=== PATIENT | male | born 1965 | race Two or more races ===

== ENCOUNTER 2024-07-12 06:40 | Day surgery (SDC) | payer OTHER ==
[2024-07-11 15:08] LABS: HEMOGLOBIN 15.5 g/dL (13-16.00); MEAN CELL VOLUME 87.9 fL (80.0-100.00); MEAN CORPUSCULAR HEMOGLOBIN 30.9 pg (27.00-32.0); MEAN CORPUSCULAR HGB CONC 35.1 g/dl (32.0-36.0); PLATELET COUNT 228 K/uL (150-450); RED BLOOD COUNT 5.01 M/uL (4.00-6.00); RED CELL DISTRIBUTION WIDTH 13.4 % (11.5-14.5)
[2024-07-11 15:34] LABS: INR 1.01; PARTIAL THROMBOPLASTIN TIME 24.2 SECONDS (22.0-34.0)
[2024-07-11 15:43] LABS: ALBUMIN 4.1 gm/dL (3.4-5.0); BILIRUBIN TOTAL 1.05 mg/dL (0.3-1.2); CALCIUM 8.9 mg/dL (8.5-10.1); CREATININE SERUM 0.76 mg/dL (0.70-1.30); GFR 105.34; GLOBULINA 2.8 G/DL (2.4-3.5); POTASSIUM 5.01 mEq/L (3.5-5.1); TOTAL PROTEIN 6.9 gm/dL (6.4-8.2)
== END 2024-07-12 20:25 | disposition home or self-care (01) ==
LOC: AMB-ENDOS 06:40
PROVIDERS: ATTEND Internal Medicine
DX: D37.5 Neoplasm of uncertain behavior of rectum (principal); K62.9 Disease of anus and rectum, unspecified; I10 Essential (primary) hypertension

== ENCOUNTER 2024-08-30 12:45 | Inpatient (IN) | payer OTHER ==
[~2024-08-30] VITALS: Ht 175.3 cm; Wt 88.0 kg
[2024-08-30] MEDS ORDERED: BENICAR5 MG PO (14:49)
[2024-09-07] MEDS ORDERED: METRONIDAZOLE/SODIUM CHLORIDE 500 MG/100 ML PIGGYBACK IV ONE (15:35)
[2024-09-07] MEDS ORDERED: CEFTRIAXONE SODIUM 2,000 MG VIAL ONE (15:35)
[2024-09-07] MEDS ORDERED: ONDANSETRON HCL 2 MG/ML VIAL IV PRN (19:15)
[2024-09-07] MEDS ORDERED: DEXTROSE 50 % IN WATER 0.5 G/ML DISP.SYRIN IV PRN (19:15)
[2024-09-07] MEDS ORDERED: RINGERS SOLUTION,LACTATED 1,000 ML IV SCH (19:15)
[2024-09-07] MEDS ORDERED: MORPHINE SULFATE 4 MG/ML CARTRIDGE IV PRN (19:15)
[2024-09-07] MEDS ORDERED: POVIDONE-IODINE 118 ML BOTT TOP ONE (19:35)
[2024-09-07] MEDS ORDERED: ACETAMINOPHEN 500 MG GEL..CAP PO SCH (20:00)
[2024-09-07] MEDS ORDERED: SUGAMMADEX SODIUM 200 MG/2 ML VIAL IV ONE (20:15)
[2024-09-07] MEDS ORDERED: LIDOCAINE HCL 1%/EPINEPHRINE 20ML VIAL IJ ONE (20:30)
[2024-09-07] MEDS ORDERED: BUPIVACAINE HCL 30 ML VIAL IJ ONE (20:30)
[2024-09-07] MEDS ORDERED: DIBUCAINE 15 GM OINT..GM. TUBE RECTAL ONE (20:30)
[2024-09-07] MEDS ORDERED: HEMOSTATIC MATRIX 1 KIT KIT TOP ONE (20:30)
[2024-09-07] MEDS ORDERED: FAMOTIDINE/PF 20 MG/2 ML VIAL IV PUSH SCH (21:00)
[2024-09-07] MEDS ORDERED: FAMOTIDINE/PF 20 MG/2 ML VIAL ONE (21:30)
[2024-09-07 21:53] LABS: HEMATOCRIT 42.8 % (39.0-48.0); HEMOGLOBIN 14.6 g/dL (13-16.00); MEAN CELL VOLUME 89.1 fL (80.0-100.00); MEAN CORPUSCULAR HEMOGLOBIN 30.5 pg (27.00-32.0); MEAN CORPUSCULAR HGB CONC 34.2 g/dl (32.0-36.0); PLATELET COUNT 188 K/uL (150-450); RED CELL DISTRIBUTION WIDTH 13.4 % (11.5-14.5)
[2024-09-07 22:08] VITALS: BP 118/77; O2SAT 97
[2024-09-07 22:08] LABS: ALBUMIN 3.5 gm/dL (3.4-5.0); CALCIUM 8.5 mg/dL (8.5-10.1); CREATININE SERUM 0.68 mg/dL (0.70-1.30); GFR 119.77; MAGNESIUM 1.9 mg/dL (1.8-2.4); PHOSPHOROUS 2.8 mg/dL (2.5-4.9); POTASSIUM 4.79 mEq/L (3.5-5.1)
[2024-09-08 01:26] VITALS: BP 125/75; O2SAT 100
[2024-09-08 07:33] LABS: HEMATOCRIT 41.6 % (39.0-48.0); HEMOGLOBIN 14.4 g/dL (13-16.00); MEAN CELL VOLUME 88.8 fL (80.0-100.00); MEAN CORPUSCULAR HEMOGLOBIN 30.8 pg (27.00-32.0); MEAN CORPUSCULAR HGB CONC 34.7 g/dl (32.0-36.0); PLATELET COUNT 199 K/uL (150-450); RED BLOOD COUNT 4.68 M/uL (4.00-6.00); RED CELL DISTRIBUTION WIDTH 13.2 % (11.5-14.5)
[2024-09-08 07:59] LABS: ALBUMIN 3.2 gm/dL (3.4-5.0); CALCIUM 8.2 mg/dL (8.5-10.1); CREATININE SERUM 0.62 mg/dL (0.70-1.30); GFR 133.24; MAGNESIUM 1.9 mg/dL (1.8-2.4); PHOSPHOROUS 3.1 mg/dL (2.5-4.9); POTASSIUM 4.48 mEq/L (3.5-5.1)
[2024-09-08 08:00] VITALS: BP 116/73; O2SAT 98
[2024-09-08] MEDS ORDERED: ENALAPRILAT DIHYDRATE 1.25 MG/ML VIAL IV PRN (08:15)
[2024-09-08] MEDS ORDERED: OLMESARTAN 5 MG PO SCH (09:00)
[2024-09-08] MEDS ORDERED: PEPCID AC20 MG PO (13:42)
[2024-09-08] MEDS ORDERED: TRAM1TAB98 PO (13:42)
== END 2024-09-08 13:51 | disposition home or self-care (01) | DRG 348 ==
LOC: O/R 09-07 10:16 → SURH 09-07 11:00 → SURG 09-07 20:49 → SURH 09-07 21:06
PROVIDERS: ADMIT Surgery; ATTEND Surgery
PROC: 0DBP7ZZ Excision of Rectum, Via Natural or Artificial Opening (ICD-10-PCS; principal; 2024-09-07 11:00)
DX: D12.8 Benign neoplasm of rectum (principal); C20 Malignant neoplasm of rectum; D37.5 Neoplasm of uncertain behavior of rectum; K62.9 Disease of anus and rectum, unspecified; I11.9 Hypertensive heart disease without heart failure